=== PATIENT | female | born 1945 | race Caucasian/White ===

== ENCOUNTER → 2017-07-05 | Outpatient (CLI) | payer OTHER, MEDICARE | LOC: CIMAGING 12:37 | PROVIDERS: ATTEND Family Medicine | DX: M25.551 Pain in right hip (principal); M54.16 Radiculopathy, lumbar region; M51.36 Other intervertebral disc degeneration, lumbar region; I70.90 Unspecified atherosclerosis | CPT/HCPCS: 72100-PO; 73502-PO ==

== ENCOUNTER → 2017-08-09 | Outpatient (CLI) | payer OTHER, MEDICARE | LOC: CIMAGING 09:54 | PROVIDERS: ATTEND Family Medicine | DX: M25.512 Pain in left shoulder (principal); S22.42XA Multiple fractures of ribs, left side, initial encounter for closed fracture; M54.5 Low back pain | CPT/HCPCS: 73030-PO ==

== ENCOUNTER → 2018-11-09 | Outpatient (CLI) | payer OTHER, MEDICARE | LOC: FIMAGING 07:12 | PROVIDERS: ATTEND Surgery | DX: R22.1 Localized swelling, mass and lump, neck (principal) ==

== ENCOUNTER → 2018-11-24 | Outpatient (CLI) | payer OTHER, MEDICARE | LOC: FIMAGING 08:05 ==